=== PATIENT | male | born 1995 | race Caucasian/White ===

== ENCOUNTER 2018-07-17 06:18 | Emergency (ER) | payer OTHER ==
[2018-07-17] MEDS: AMOXICILLIN 500 MG CAP PO (06:55)
[2018-07-17] MEDS: IBUPROFEN 800 MG TAB PO (06:57)
[2018-07-17] MEDS: NORCO, ANEXSIA 5/325MG TABLET (HYDROcodone/ACETAMINOPHEN) PO (06:58)
== END 2018-07-17 07:00 | disposition home or self-care (01) ==
LOC: M ED 06:18
DX: K02.9 Dental caries, unspecified (principal); K13.79 Other lesions of oral mucosa; H65.01 Acute serous otitis media, right ear; F17.210 Nicotine dependence, cigarettes, uncomplicated; Z88.2 Allergy status to sulfonamides
CPT/HCPCS: 99282

== ENCOUNTER 2018-09-17 18:39 | Emergency (ER) | payer OTHER ==
[2018-09-17] MEDS: IBUPROFEN 600 MG TAB PO (22:23)
== END 2018-09-17 22:27 | disposition home or self-care (01) ==
LOC: M ED 18:39
DX: R20.2 Paresthesia of skin (principal); S46.811A Strain of other muscles, fascia and tendons at shoulder and upper arm level, right arm, initial encounter; F41.9 Anxiety disorder, unspecified; F99 Mental disorder, not otherwise specified; X50.0XXA Overexertion from strenuous movement or load, initial encounter; Y92.89 Other specified places as the place of occurrence of the external cause; F17.200 Nicotine dependence, unspecified, uncomplicated; Z88.2 Allergy status to sulfonamides
CPT/HCPCS: 99283

== ENCOUNTER 2019-01-30 19:17 | Emergency (ER) | payer OTHER ==
[~2019-01-30 19:17] MED LIST: ACET500T15 PO; AMOX500C PO; IBUP-1022 PO; IBUP80TA PO
== END 2019-01-31 01:09 | disposition expired ==
LOC: EDBD 19:17 → M ED 19:17 → EDSEX 19:17 → M ED 01-31 01:09
DX: I46.9 Cardiac arrest, cause unspecified (principal)

== ENCOUNTER → 2019-01-31 | Outpatient (REF) | LOC: M LAB 09:00 ==